=== PATIENT | female | born 1965 | race Caucasian/White ===

== ENCOUNTER 2017-05-16 17:09 | Emergency (ER) | payer SELFPAY ==
[2017-05-16] MEDS ORDERED: BENZONATATE 100 MG CAPSULE PO ONE (19:35)
--- NOTE | 2017-05-16 19:41 | ER Document Report ---
ED General - General Chief Complaint: Flu Symptoms Stated Complaint: COUGH Time Seen by Provider: 05/16/17 19:32 Notes: 51-year-old female here with signs of cough congestion runny nose headache body aches ongoing since May 04 however the congestion runny nose resolved but the body aches and (productive of green sputum) cough persists. She has not seen a physician about this as she does not have insurance. She has also had some shortness of breath with exertion but no extremity swelling. Shortness of breath not worse with lying flat. TRAVEL OUTSIDE OF THE [place] IN LAST 30 DAYS: No - Related Data Allergies/Adverse Reactions: amoxicillin Allergy (Mild, Verified 05/16/17 18:41) Hives Past Medical History - Social History Smoking Status: Never Smoker Frequency of alcohol use: None Drug Abuse: None Family History: None Patient has suicidal ideation: No Patient has homicidal ideation: No Renal/ Medical History: Denies: Hx Peritoneal Dialysis Review of Systems - Review of Systems Notes: See history of present illness for pertinent positive review of systems; otherwise all review of systems have been reviewed and are negative Physical Exam - Vital signs Vitals: Temp Pulse Resp BP Pulse Ox 98.7 F 102 H 20 116/63 96 05/16/17 17:28 05/16/17 17:28 05/16/17 17:28 05/16/17 17:28 05/16/17 17:28 - Notes Notes: PHYSICAL EXAMINATION: GENERAL: Well-appearing and in no acute distress. HEAD: Atraumatic, normocephalic. EYES: Pupils equal round and reactive to light, extraocular movements intact, sclera anicteric, conjunctiva are normal. ENT: nares patent, oropharynx clear without exudates. Moist mucous membranes. NECK: Normal range of motion, supple without lymphadenopathy LUNGS: CTAB and equal. No wheezes rales or rhonchi. HEART: Regular rate and rhythm without murmurs ABDOMEN: Soft, no tenderness. No guarding, no rebound EXTREMITIES: Normal range of motion, no pitting edema. No cyanosis. NEUROLOGICAL: Cranial nerves grossly intact. Normal sensory/motor exams. PSYCH: Normal mood, normal affect. SKIN: Warm, Dry, normal turgor, no rashes or lesions noted Course - Re-evaluation Re-evalutation: 05/16/17 19:43 MEDICAL DECISION MAKING: Concern for postviral cough syndrome versus pneumonia versus bronchitis Will treat with azithromycin albuterol inhaler and Tessalon Perles [facility] or few Patient understands and agrees to the plan of care - Vital Signs Vital signs: Temp Pulse Resp BP Pulse Ox 98.7 F 102 H 20 116/63 96 05/16/17 17:28 05/16/17 17:28 05/16/17 17:28 05/16/17 17:28 05/16/17 17:28 Discharge - Discharge Clinical Impression: Post-viral cough syndrome Condition: Good Disposition: HOME, SELF-CARE Additional Instructions: Finish the antibiotics and do not skip any doses. Use the inhaler and cough medicine, as needed for coughing. You were seen in the emergency department at [facility]. If you were given any sedating medications, be sure not to operate heavy machinery (example - driving) and be sure you are not too sedated to walk appropriately. Please followup with your primary physician in the next few days for further management/evaluation. Please return to the emergency department for worsening of symptoms or any symptom that you deem to be concerning or life-threatening. Thank you for allowing us to be part of your care. Prescriptions: Benzonatate [Tessalon Perles 100 mg Capsule] 100 mg PO Q8HP PRN #40 capsule PRN Reason: Albuterol Sulfate [Proair HFA Inhalation Aerosol 8.5 gm MDI] 2 puff IH Q4H PRN # 1 mdi PRN Reason: Azithromycin [Zithromax 250 mg Tablet] 250 mg PO ASDIR PRN #6 tablet PRN Reason:
[2017-05-16 19:43] VITALS: BP 120/84
== END 2017-05-16 19:42 | disposition home or self-care (01) ==
LOC: ER 17:09
DX: G93.3 Postviral and related fatigue syndromes (principal); R05 Cough; Z88.0 Allergy status to penicillin
CPT/HCPCS: 99283